=== PATIENT | female | born 1935 | race Caucasian/White ===

== ENCOUNTER 2018-03-06 08:11 | Day surgery (SDC) | payer MEDICARE, OTHER ==
[~2018-03-06] VITALS: Ht 163.8 cm; Wt 69.8 kg
[~2018-03-06 08:11] MED LIST: CALC-116 PO; CHOL2000 PO; CYAN500T2 PO; FLUO15CR2; HYDR-3237 PO; IBAN150T4 PO; LEVO100T5 PO; LOVA40TA2 PO; METR1KIT; MULT-208 PO; NITR100C6 PO; OMEP-110 PO; OXYB5TAB7 PO; PANT40TA5 PO; ZOLP10TA5 PO
[2018-03-06] MEDS ORDERED: LIDOCAINE-MPF 1%, 2ML INFIL ONE (09:00)
[2018-03-06] MEDS ORDERED: LACTATED RINGERS 1,000 ML IV SCH (09:00)
[2018-03-06] MEDS ORDERED: PLEASE ENTER HEIGHT AND WEIGHT MC SCH (09:04)
[2018-03-06] MEDS ORDERED: CLOB15CR19 TP (09:16)
[2018-03-06] MEDS ORDERED: PROLIA (09:16)
[2018-03-06] MEDS ORDERED: HYDR10TA4 PO (09:16)
[2018-03-06] MEDS ORDERED: TRIAMCINOLONE TP (09:16)
[2018-03-06] MEDS ORDERED: SULF1TAB23 PO (09:16)
[2018-03-06] MEDS ORDERED: TRAMADOL PO (09:16)
[2018-03-06 09:22] VITALS: BP 140/72
[2018-03-06] MEDS ORDERED: FENTANYL PF 250 MCG/5ML ONE (10:05)
[2018-03-06] MEDS ORDERED: PROPOFOL 10 MG/ML, 20ML ONE (10:06)
[2018-03-06] MEDS ORDERED: WATER-INJECTION,STERILE 10 ML IV ONE (10:07)
[2018-03-06] MEDS ORDERED: CEFAZOLIN 1,000 MG ONE ×2 (10:07)
[2018-03-06] MEDS ORDERED: ONDANSETRON 2MG/ML, 2ML ONE (10:09)
[2018-03-06] MEDS ORDERED: DEXAMETHASONE 4 MG/ML, 1ML ONE ×2 (10:09)
[2018-03-06] MEDS ORDERED: BUPIVACAINE/PF-EPI 0.5% 1:200K ONE (11:27)
[2018-03-06] MEDS ORDERED: MORPHINE SULFATE 4 MG/ML, 1ML IVPush PRN (11:30)
[2018-03-06] MEDS ORDERED: PROMETHAZINE 25 MG/ML, 1ML IM PRN ×2 (11:30)
[2018-03-06] MEDS ORDERED: hydrALAzine 20 MG/ML, 1ML IV PRN (11:30)
[2018-03-06] MEDS ORDERED: ONDANSETRON 2MG/ML, 2ML IV PRN (11:30)
[2018-03-06] MEDS ORDERED: ONDANSETRON ODT 8 MG PO PRN (11:30)
[2018-03-06] MEDS ORDERED: MEPERIDINE/PF 25MG/0.5ML IVPush PRN (11:30)
[2018-03-06] MEDS ORDERED: HYDROmorphone 1 MG/ML, 1ML IV PRN (11:30)
[2018-03-06] MEDS ORDERED: HYDROcodone/APAP 7.5-325MG/15ML UDC PO PRN (11:30)
[2018-03-06] MEDS ORDERED: LABETALOL 5MG/ML, 20ML IV PRN (11:30)
[2018-03-06] MEDS ORDERED: PROMETHAZINE 25 MG/ML, 1ML IV PRN (11:30)
[2018-03-06] MEDS ORDERED: ACETAMINOPHEN 325 MG TABLET PO PRN (11:30)
[2018-03-06] MEDS ORDERED: FENTANYL PF 100 MCG/2ML IV PRN (11:30)
[2018-03-06] MEDS ORDERED: MEPERIDINE/PF 50 MG/ML ONE (12:04)
== END 2018-03-06 13:45 | disposition home or self-care (01) ==
LOC: OUT 08:11
PROVIDERS: ATTEND Orthopaedic Surgery
DX: T84.84XA Pain due to internal orthopedic prosthetic devices, implants and grafts, initial encounter (principal); I10 Essential (primary) hypertension; E03.9 Hypothyroidism, unspecified; Z88.5 Allergy status to narcotic agent; Z88.8 Allergy status to other drugs, medicaments and biological substances; Y83.8 Other surgical procedures as the cause of abnormal reaction of the patient, or of later complication, without mention of misadventure at the time of the procedure; Y92.89 Other specified places as the place of occurrence of the external cause; Z98.890 Other specified postprocedural states; Z79.899 Other long term (current) drug therapy
CPT/HCPCS: 20680; 73020; 76000; 93005; J0690; J1100; J2175; J2405; J2704; J3010; J3490; J7120

== ENCOUNTER → 2020-03-05 | Outpatient (CLI) | payer MEDICARE ==
[~2020-03-05] MED LIST changes: +AMOX-291 PO; +AZEL137S4 NAS; +CLOB15CR19 TP; +CRAN500T2 PO; -CYAN500T2 PO; +CYAN500T54 PO; +DENO60DI INJ; +DICL100G25 TP; +HYDR-2995 PO; +IBAN150T20 PO; -IBAN150T4 PO; +LACT10SO28 PO; +LINA290C PO; +OMEP40CA42 PO; +ONDA4TAB7 PO; +OXYB5TAB10 PO; -OXYB5TAB7 PO; -PANT40TA5 PO; +PANT40TA6 PO; +POTA20TA6 PO; +PROLIA; +PSYL0.5215 PO; +SULF1TAB23 PO; +TRAM50TA2 PO; +TRAMADOL PO; +TRIAMCINOLONE TP; +ZOLP5TAB6 PO
[2020-03-05 11:34] LABS: BASOPHILS # (AUTO) 0.02 x10^3/uL (0-0.1); BASOPHILS % (AUTO) 0 % (0-1); EOSINOPHILS # (AUTO) 0.09 x10^3/uL (0-0.4); EOSINOPHILS % (AUTO) 2 % (1-7); LYMPHOCYTES # (AUTO) 1.09 x10^3/uL (1-3.4); LYMPHOCYTES % (AUTO) 21 % (22-44); MD NO; MEAN CORPUSCULAR HEMOGLOBIN 30.7 pg (27.0-34.8); MEAN CORPUSCULAR HGB CONC 32.5 g/dL (32.4-35.8); MEAN CORPUSCULAR VOLUME 94.5 fL (80-100); MEAN PLATELET VOLUME 7.7 fL (7.4-10.4); MONOCYTES # (AUTO) 0.51 x10^3/uL (0.2-0.8); MONOCYTES % (AUTO) 10 % (2-9); NEUTROPHILS # (AUTO) 3.47 x10^3/uL (1.8-6.8); NEUTROPHILS % (AUTO) 67 % (42-75); PLATELET COUNT 217 x10^3/uL (130-400); RED BLOOD COUNT 4.49 x10^6/uL (3.82-5.3); RED CELL DISTRIBUTION WIDTH 15.1 % (9.6-15.2)
[2020-03-05 11:37] LABS: INTERNATIONAL NORMALIZED RATIO 0.97 (0.93-1.1)
[2020-03-05 11:39] LABS: ALANINE AMINOTRANSFERASE 18 U/L (12-78); ALBUMIN 3.3 g/dL (3.4-5.0); ANION GAP 3 mmol/L (5-15); CALCIUM 8.7 mg/dL (8.5-10.1); CHLORIDE 109 mmol/L (98-107); CREATININE 0.73 mg/dL (0.55-1.02)
[2020-03-05 11:41] LABS: ALKALINE PHOSPHATASE 41 U/L (45-117); BILIRUBIN,TOTAL 0.4 mg/dL (0.2-1.0); TOTAL PROTEIN 6.7 g/dL (6.4-8.2)
== END | disposition home or self-care (01) ==
LOC: STAR 10:24
PROVIDERS: ATTEND Orthopaedic Surgery
DX: Z01.818 Encounter for other preprocedural examination (principal); M16.11 Unilateral primary osteoarthritis, right hip; I21.29 ST elevation (STEMI) myocardial infarction involving other sites
CPT/HCPCS: 36415; 80053; 83036; 85025; 85610; 85730; 87081; 87806; 93005; G0475

== ENCOUNTER → 2020-03-06 | Outpatient (CLI) | payer MEDICARE ==
[~2020-03-06] MED LIST changes: +ASPI81TA45 PO; +EPINEPHRINE 1 MG/ML, 1ML ONE; +KETOROLAC 60 MG/2 ML ONE; +ROPIvacaine/PF 0.2%, 20 ML ONE; +SODIUM CHLORIDE 0.9% 50 ML ONE; +TRANEXAMIC ACID 100 MG/ML, 10ML ONE; +VANCOMYCIN 1,000 MG ONE
== END | disposition home or self-care (01) ==
LOC: STAR 14:16
PROVIDERS: ATTEND Anesthesiology
DX: Z01.812 Encounter for preprocedural laboratory examination (principal); Z20.828 Contact with and (suspected) exposure to other viral communicable diseases
CPT/HCPCS: 36415; 87635